=== PATIENT | female | born 1950 | race Caucasian/White ===

== ENCOUNTER 2022-02-18 22:23 | Emergency (ER) | payer MEDICARE, OTHER ==
[2022-02-18 22:44] VITALS: BP 131/90; PULSE 125
[2022-02-18] MEDS ORDERED: Lactated Ringers 500 ML IV ONE (22:58)
[2022-02-18] MEDS ORDERED: Albuterol/Ipratropium 3.0-0.5 MG/3 ML Neb Soln NEB ONE (22:58)
[2022-02-19 00:21] LABS: ESTIMATED GFR 92 mL/min (>60)
[2022-02-19] MEDS ORDERED: methylPREDNISolone Sodium Succinate 125 MG/2 ML SDV IVPUSH ONE (01:30)
[2022-02-19] MEDS ORDERED: Doxycycline 100 MG Cap PO ONE (01:31)
== END 2022-02-19 02:25 | disposition home or self-care (01) ==
LOC: JD.ED 22:23
DX: J44.1 Chronic obstructive pulmonary disease with (acute) exacerbation (principal); E78.00 Pure hypercholesterolemia, unspecified; I10 Essential (primary) hypertension; E11.9 Type 2 diabetes mellitus without complications; F17.210 Nicotine dependence, cigarettes, uncomplicated; Z88.0 Allergy status to penicillin; Z79.82 Long term (current) use of aspirin; Z79.899 Other long term (current) drug therapy; Z79.84 Long term (current) use of oral hypoglycemic drugs; Z20.822 Contact with and (suspected) exposure to COVID-19
CPT/HCPCS: 36415; 36600; 71045; 80053; 81001; 82803; 83605; 83880; 84484; 85025; 87040; 87086; 93005; 94640; 96361; 96374; 99285; A9270; J2930; J7120; U0002; 93010; 99284; J7620-GY